=== PATIENT | male | born 1935 | race Caucasian/White ===

== ENCOUNTER 2017-10-16 10:03 | Inpatient (IN) | payer MEDICARE, BC ==
[2017-10-16] MEDS ORDERED: VANCOMYCIN HCL 500 MG PDS 1,000 MG in SODIUM CHLORIDE 0.9% 250 ML 250 ML IV ONE (10:14)
[2017-10-16] MEDS ORDERED: SODIUM CHLORIDE 0.9% 1000ML 1,000 ML IV ONE ×2 (10:16)
[2017-10-16] MEDS ORDERED: GENTAMICIN 0.3% OPHTH 1 DROP SOL EACHEYE ONE (10:28)
[2017-10-16] MEDS ORDERED: VANCOMYCIN HYDROCHLORIDE 500 MG PDS IV ONE (10:39)
[2017-10-16 10:52] LABS: BASOPHILS % (AUTO) 0 % (0-3); EOSINOPHILS % (AUTO) 0 % (0-9); HEMATOCRIT 44 % (39-53); MEAN CORPUSCULAR HGB CONC 32.3 gm/dl (32.0-36.0); MONOCYTES % (AUTO) 1.9 % (0-12); NEUTROPHILS % (AUTO) 92.7 % (37-80)
[2017-10-16 10:53] LABS: MEAN CORPUSCULAR VOLUME 101 fL (80-100)
[2017-10-16 11:02] LABS: ALBUMIN 2.6 gm/dl (3.4-5.0); ALT 149 IU/L (14-63); CALCIUM 8.7 mg/dl (8.5-10.1); GLOM FILT RATE 175 mL/min (>60); POTASSIUM 3.6 mMol/L (3.5-5.1); SODIUM 134 mMol/L (136-145)
[2017-10-16] MEDS ORDERED: GENTAMICIN 0.3% OPHTH 1 DROP SOL ONE (11:13)
[2017-10-16] MEDS ORDERED: PIPERACILLIN/TAZOBACT 3.375 GM 3 GM in SODIUM CHLORIDE 0.9% 100 ML 100 ML IV ONE (11:17)
[2017-10-16] MEDS ORDERED: METOPROLOL TARTRATE 5 MG/5 ML SOL IV ONE ×2 (11:24→11:26)
[2017-10-16] MEDS ORDERED: SODIUM CHLORIDE 0.9% 1000ML 1,000 ML IV SCH (11:30)
[2017-10-16] MEDS ORDERED: PIPERACILLIN/TAZOBACT 3.375 GM PDS IV ONE ×2 (11:34→16:12)
[2017-10-16] MEDS ORDERED: METOPROLOL TARTRATE 25 MG TAB PO ONE (11:35)
[2017-10-16 12:16] LABS: APPEARANCE,URINE Cloudy; BILIRUBIN,URINE 1+ (NEGATIVE); COLOR,URINE Dark yellow; GLUCOSE, URINE (UA) NEGATIVE (NEGATIVE); KETONES,URINE 1+ (NEGATIVE); LEUKOCYTE ESTERASE ,URINE TRACE (NEGATIVE); NITRATE,URINE NEGATIVE (NEGATIVE); OCCULT BLOOD,URINE TRACE INTACT (NEG-TRACE); UROBILINOGEN,URINE 0.2 (0.2-1.0 EU)
[2017-10-16 12:21] LABS: ICTOTEST,URINE NEGATIVE (NEGATIVE)
[2017-10-16 12:33] LABS: RBC,URINE 0-4 (0-3AV/HPF)
[2017-10-16] MEDS ORDERED: METOPROLOL TARTRATE 25 MG TAB ONE (12:46)
[2017-10-16] MEDS ORDERED: ALBUTEROL NEB SOL 2.5MG/3ML 1 VIAL SOL INH PRN (12:55)
[2017-10-16] MEDS ORDERED: ACETAMINOPHEN 325 MG PO PRN (12:55)
[2017-10-16] MEDS ORDERED: BISACODYL 10 MG SUP PR PRN (12:55)
[2017-10-16] MEDS ORDERED: APAP/CODEINE 300/30 TAB PO PRN (13:00)
[2017-10-16] MEDS ORDERED: MORPHINE SULFATE 10 MG/ML SOL IV PRN (13:00)
[2017-10-16] MEDS ORDERED: SODIUM CHLORIDE 0.9% FLUSH 10 ML SOL IV SCH (13:00)
[2017-10-16] MEDS ORDERED: LIDOCAINE 4% CREAM TP ONE (14:36)
[2017-10-16 14:40] VITALS: RESP 20
[2017-10-16] MEDS ORDERED: PIPERACILLIN/TAZOBACT 3.375 GM 3.375 GM in SODIUM CHLORIDE 0.9% 100 ML 100 ML IV SCH (16:00)
[2017-10-16] MEDS ORDERED: SODIUM CHLORIDE 0.9% 100 ML 100 ML IV ONE (16:13)
[2017-10-16 16:25] LABS: BASOPHILS % (AUTO) 0 % (0-3); EOSINOPHILS % (AUTO) 0 % (0-9); HEMATOCRIT 42 % (39-53); MONOCYTES % (AUTO) 1.9 % (0-12); NEUTROPHILS % (AUTO) 92.5 % (37-80)
[2017-10-16 16:26] LABS: MEAN CORPUSCULAR VOLUME 101 fL (80-100)
[2017-10-16 16:48] LABS: ALBUMIN 2.2 gm/dl (3.4-5.0); CALCIUM 7.8 mg/dl (8.5-10.1); POTASSIUM 3.4 mMol/L (3.5-5.1)
[2017-10-16 17:17] VITALS: BP 138/70; PULSE 104; TEMP 97.8; O2SAT 97
[2017-10-16] MEDS ORDERED: VANCOMYCIN HCL 500 MG PDS 1,000 MG in SODIUM CHLORIDE 0.9% 250 ML 250 ML IV SCH (21:00)
[2017-10-16] MEDS ORDERED: BUDESONIDE 0.5 MG/2 ML AMPUL.NEB INH SCH (21:00)
[2017-10-16] MEDS ORDERED: METOPROLOL TARTRATE 25 MG TAB PO SCH (21:00)
[2017-10-17] MEDS ORDERED: NITROGLYCERIN 0.4 MG/HOUR PATCH TD SCH (09:00)
[2017-10-17] MEDS ORDERED: PANTOPRAZOLE SODIUM 40 MG ECT PO SCH (09:00)
[2017-10-17] MEDS ORDERED: ASPIRIN 81 MG CHEWABLE CTB PO SCH (09:00)
[2017-10-17] MEDS ORDERED: ENOXAPARIN 30 MG SOL SC SCH (09:00)
== END 2017-10-16 17:50 | disposition short-term general hospital (02) | DRG 872 ==
LOC: ED 10:03 → UNDOADMIN 12:29 → ACUTE CARE 12:29
PROVIDERS: ADMIT Family Medicine; ATTEND Family Medicine
PROC: 2W2KX4Z Dressing of Left Finger using Bandage (ICD-10-PCS; principal; 2017-10-16)
PROC: 2W2JX4Z Dressing of Right Finger using Bandage (ICD-10-PCS; 2017-10-16)
DX: A41.9 Sepsis, unspecified organism (principal); J18.9 Pneumonia, unspecified organism; L03.213 Periorbital cellulitis; I73.9 Peripheral vascular disease, unspecified; J43.1 Panlobular emphysema; H60.12 Cellulitis of left external ear; T23.012A Burn of unspecified degree of left thumb (nail), initial encounter; L03.011 Cellulitis of right finger; L03.012 Cellulitis of left finger; R00.0 Tachycardia, unspecified; T23.021A Burn of unspecified degree of single right finger (nail) except thumb, initial encounter; X08.8XXA Exposure to other specified smoke, fire and flames, initial encounter; L98.499 Non-pressure chronic ulcer of skin of other sites with unspecified severity
CPT/HCPCS: 16020; 36415; 71045; 80053; 81001; 82550; 84484; 85025; 85610; 85651; 87040; 87070; 87075; 87077; 87088; 87186; 93005; 94762; 96365; 96366; 96374; 99070; 99285; 99291; J2543; J3370; A4450; A6232; A6402; A9270-GY; J3490